=== PATIENT | female | born 1945 | race Native Hawaiian/Other Pacific Islander ===

== ENCOUNTER 2022-11-13 18:57 | Emergency (ER) | payer MEDICARE, OTHER ==
[~2022-11-13] VITALS: Ht 162.6 cm; Wt 87.3 kg
[2022-11-13] MEDS ORDERED: ALLO-97 PO (19:06)
[2022-11-13] MEDS ORDERED: SIMV-260 PO (19:06)
[2022-11-13] MEDS ORDERED: LISI-892 PO (19:06)
[2022-11-13] MEDS ORDERED: TELM20 PO (19:12)
[2022-11-13] MEDS ORDERED: SODIUM CHLORIDE 0.9% 250 ML IRRIG SOLUTION BOTTLE IRRIG ONE (19:15)
[2022-11-13] MEDS ORDERED: PERTUSS(ACELL),DIPH,TET VAC/PF 0.5 ML SYRINGE IM. ONE (19:15)
[2022-11-13] MEDS ORDERED: CEPHALEXIN MONOHYDRATE 500 MG CAPSULE PO ONE (21:45)
[2022-11-13] MEDS ORDERED: ACETAMINOPHEN 325 MG TABLET PO ONE (21:45)
[2022-11-13] MEDS ORDERED: CEPH-558 PO (21:52)
[2022-11-13 22:13] VITALS: BP 138/73
== END 2022-11-13 22:26 | disposition home or self-care (01) ==
LOC: EMS 18:58
DX: S91.312A Laceration without foreign body, left foot, initial encounter (principal); M19.90 Unspecified osteoarthritis, unspecified site; E78.00 Pure hypercholesterolemia, unspecified; I10 Essential (primary) hypertension; Z96.659 Presence of unspecified artificial knee joint; W19.XXXA Unspecified fall, initial encounter; Y93.89 Activity, other specified; Y92.89 Other specified places as the place of occurrence of the external cause; Y99.8 Other external cause status
CPT/HCPCS: 12001; 90471; 90715; 99283